=== PATIENT | male | born 1950 | race Caucasian/White ===

== ENCOUNTER 2018-01-01 11:35 | Emergency (ER) | payer OTHER ==
[2018-01-01 12:25] LABS: BASOPHILS 0.3 % (0-2); HEMATOCRIT 38.3 % (42.0-54.0); HEMOGLOBIN 12.6 g/dL (13.5-17.5); LYMPHOCYTES 20.4 % (15-50); MCH 28.8 pg (26.0-34.0); MCHC 32.9 g/dL (31.0-37.0); MCV 87.4 fL (80.0-100.0); MEAN PLATELET VOLUME 9.7 fL (7.4-10.4); MONOCYTES 11.6 % (2-11); NEUTROPHILS 65.7 % (40-80); PLATELET COUNT 88 10x3/uL (130-400); RBC 4.38 10x6/uL (4.20-6.10); RDW 14.2 % (11.5-14.5); WBC 3.5 10x3/uL (4.8-10.8)
[2018-01-01 12:33] LABS: UDS - AMPHET POSITIVE QUAL (NEGATIVE); UDS - BARB NEGATIVE QUAL (NEGATIVE); UDS - BENZO NEGATIVE QUAL (NEGATIVE); UDS - COCAINE POSITIVE QUAL (NEGATIVE); UDS - OPIATE NEGATIVE QUAL (NEGATIVE); UDS - PCP NEGATIVE QUAL (NEGATIVE); UDS - THC NEGATIVE QUAL (NEGATIVE)
[2018-01-01 12:34] LABS: APPEARANCE CLEAR (CLEAR); BILIRUBIN NEGATIVE (NEGATIVE); COLOR YELLOW (YELLOW); GLUCOSE NEGATIVE (NEGATIVE); KETONE SMALL mg/dL (NEGATIVE); NITRITE NEGATIVE (NEGATIVE); PROTEIN NEGATIVE (NEGATIVE); SPECIFIC GRAVITY 1.015 (1.005-1.020)
[2018-01-01 12:36] LABS: ALBUMIN 3.8 g/dL (3.4-5.0); ALKALINE PHOSPHATASE 113 U/L (46-116); ALT (SGPT) 81 U/L (10-68); BILIRUBIN - TOTAL 0.69 mg/dL (0.2-1.3); CALC OSMOLALITY 281 mosm/kg (275-300); CALCIUM 9.4 mg/dL (8.5-10.1); CARBON DIOXIDE 27.6 mmol/L (21.0-32.0); CHLORIDE - SERUM 104 mmol/L (98-107); CREATININE - SERUM 0.9 mg/dL (0.6-1.3); GLUCOSE 99 mg/dL (74-106); POTASSIUM - SERUM 4.5 mmol/L (3.5-5.1); SODIUM 142 mmol/L (136-145); UREA NITROGEN 10 mg/dL (7-18); eGFR NON AFRICAN AMERICAN 90 mL/min (90-120)
== END 2018-01-01 16:45 | disposition home or self-care (01) ==
LOC: D.ER 11:35
PROVIDERS: Emergency Medicine
DX: R45.851 Suicidal ideations (principal); F15.10 Other stimulant abuse, uncomplicated; F14.10 Cocaine abuse, uncomplicated; I10 Essential (primary) hypertension; K21.9 Gastro-esophageal reflux disease without esophagitis

== ENCOUNTER 2018-06-03 14:17 | Inpatient (IN) | payer MEDICARE ==
[~2018-06-03] VITALS: Ht 180.3 cm; Wt 127.0 kg
[2018-06-03 19:37] LABS: HEMATOCRIT 38.4 % (42.0-54.0); HEMOGLOBIN 13.3 g/dL (13.5-17.5); MCH 28.4 pg (26.0-34.0); MCHC 34.6 g/dL (31.0-37.0); MCV 81.9 fL (80.0-100.0); MEAN PLATELET VOLUME 9.4 fL (7.4-10.4); RBC 4.69 10x6/uL (4.20-6.10); RDW 14.1 % (11.5-14.5)
[2018-06-03 19:52] LABS: PLATELET COUNT 66 10x3/uL (130-400)
[2018-06-03 19:54] LABS: ALBUMIN 2.9 g/dL (3.4-5.0); ANION GAP 12.7 mmol/L (8-16); BILIRUBIN - TOTAL 1.02 mg/dL (0.2-1.3); CALCIUM 9.3 mg/dL (8.5-10.1); CARBON DIOXIDE 28.8 mmol/L (21.0-32.0); CREATININE - SERUM 1.3 mg/dL (0.6-1.3); POTASSIUM - SERUM 3.5 mmol/L (3.5-5.1); PROTEIN - SERUM 7.3 g/dL (6.4-8.2)
[2018-06-03 20:21] LABS: LYMPHOCYTES 66 % (15-50); MONOCYTES 20 % (2-11); PLATELET MORPHOLOGY GIANT PLTS PRESENT
[2018-06-03 20:25] LABS: PLATELET ESTIMATE DECREASED
[2018-06-03 21:09] VITALS: BP 147/89
[2018-06-03 23:47] VITALS: BP 139/83
[2018-06-04] VITALS (10 sets, daily range): BP systolic 107–136; BP diastolic 65–82; BMI 39.1
[2018-06-04 00:16] LABS: AMORPHOUS SEDIMENT <1+ /lpf (NONE SEEN); APPEARANCE CLEAR (CLEAR); BACTERIA NONE SEEN /hpf (NONE SEEN); BILIRUBIN 1+ (NEGATIVE); COLOR DK YELLOW (YELLOW); EPITHELIAL CELLS NSEEN /hpf (0-5); GLUCOSE NEGATIVE (NEGATIVE); GRANULAR CAST RARE /lpf (NONE SEEN); KETONE NEGATIVE (NEGATIVE); NITRITE NEGATIVE (NEGATIVE); PROTEIN 1+ mg/dL (NEGATIVE); WHITE CELLS - URINE 0-5 /hpf (0-5)
[2018-06-04 11:12] LABS: MONO NEGATIVE (NEGATIVE)
[2018-06-04] MEDS ORDERED: LYRICA150 MG PO (13:37)
[2018-06-04] MEDS ORDERED: ZANTAC150 MG PO (13:38)
[2018-06-04] MEDS ORDERED: MOBIC7.5 MG PO (13:39)
[2018-06-04] MEDS ORDERED: CYMBALTA60 MG PO (13:39)
[2018-06-05 06:59] VITALS: BP 124/70
[2018-06-05 07:15] LABS: BASOPHILS 0.6 % (0-2); EOSINOPHILS 3.6 % (0-7); HEMATOCRIT 34.4 % (42.0-54.0); HEMOGLOBIN 11.5 g/dL (13.5-17.5); IMMATURE GRANULOCYTES 0.6 % (0-5); LYMPHOCYTES 34.9 % (15-50); MCH 27.6 pg (26.0-34.0); MCHC 33.4 g/dL (31.0-37.0); MCV 82.7 fL (80.0-100.0); MEAN PLATELET VOLUME 9.6 fL (7.4-10.4); MONOCYTES 33.1 % (2-11); NEUTROPHILS 27.2 % (40-80); RBC 4.16 10x6/uL (4.20-6.10); RDW 14.1 % (11.5-14.5)
[2018-06-05 07:29] LABS: CALC OSMOLALITY 278 mosm/kg (275-300); CALCIUM 8.6 mg/dL (8.5-10.1); CARBON DIOXIDE 27.9 mmol/L (21.0-32.0); CHLORIDE - SERUM 105 mmol/L (98-107); GLUCOSE 104 mg/dL (74-106); POTASSIUM - SERUM 3.4 mmol/L (3.5-5.1); SODIUM 140 mmol/L (136-145); UREA NITROGEN 13 mg/dL (7-18); eGFR NON AFRICAN AMERICAN 79 mL/min (90-120)
[2018-06-05 07:42] LABS: PLATELET COUNT 82 10x3/uL (130-400)
[2018-06-05 07:44] LABS: WBC 1.7 10x3/uL (4.8-10.8)
[2018-06-05 09:24] VITALS: BP 120/71
[2018-06-05 12:21] LABS: EBV - EARLY ANTIGEN AB IGG 61.3 U/mL (0.0-8.9); EBV VIRAL CAPSID AB IGM <36.0 U/mL (0.0-35.9)
[2018-06-05 12:27] VITALS: BP 115/58
[2018-06-05 14:00] VITALS: Ht 180.3 cm; Wt 127.0 kg
[2018-06-05 16:58] VITALS: BP 135/80
[2018-06-05 21:36] VITALS: BP 111/65
[2018-06-06 04:17] VITALS: BP 135/70
[2018-06-06 06:10] LABS: BASOPHILS 0 % (0-2); HEMATOCRIT 33.8 % (42.0-54.0); HEMOGLOBIN 11.2 g/dL (13.5-17.5); IMMATURE GRANULOCYTES 0.8 % (0-5); LYMPHOCYTES 45.9 % (15-50); MCH 27.6 pg (26.0-34.0); MCHC 33.1 g/dL (31.0-37.0); MCV 83.3 fL (80.0-100.0); MEAN PLATELET VOLUME 10.4 fL (7.4-10.4); MONOCYTES 21.1 % (2-11); NEUTROPHILS 29.2 % (40-80); PLATELET COUNT 88 10x3/uL (130-400); RBC 4.06 10x6/uL (4.20-6.10); RDW 13.9 % (11.5-14.5)
[2018-06-06 06:36] LABS: CALC OSMOLALITY 283 mosm/kg (275-300); CALCIUM 8.7 mg/dL (8.5-10.1); CARBON DIOXIDE 30.4 mmol/L (21.0-32.0); CHLORIDE - SERUM 105 mmol/L (98-107); CREATININE - SERUM 0.9 mg/dL (0.6-1.3); GLUCOSE 130 mg/dL (74-106); POTASSIUM - SERUM 3.5 mmol/L (3.5-5.1); SODIUM 141 mmol/L (136-145); UREA NITROGEN 14 mg/dL (7-18); WBC 1.3 10x3/uL (4.8-10.8); eGFR NON AFRICAN AMERICAN 90 mL/min (90-120)
[2018-06-06 07:35] LABS: APTT 41.7 SECONDS (22.8-39.4); INR 0.96 (0.85-1.17); PROTIME 12.4 SECONDS (11.6-15.0)
[2018-06-06 08:40] VITALS: BP 141/82
[2018-06-06 09:23] LABS: % SATURATION 30 % (15-55); IRON 48 ug/dl (35-150); TOTAL IRON BIND CAPACITY 155 ug/dl (260-445); UNSAT IRON BIND CAPACITY 107 ug/dl (150-375)
[2018-06-06 13:20] LABS: ANA REFLEX - ANTICHROMATIN ABS <0.2 AI (0.0-0.9); ANA REFLEX - CENTROMERE B ABS <0.2 AI (0.0-0.9); ANA REFLEX - DBL STRANDED DNA <1 IU/mL (0-9); ANA REFLEX - DIRECT Positive (Negative); ANA REFLEX - JO-1 AB <0.2 AI (0.0-0.9); ANA REFLEX - RNP ANTIBODIES 2.9 AI (0.0-0.9); ANA REFLEX - SCL-70 <0.2 AI (0.0-0.9); ANA REFLEX - SJOGRENS AB SSA <0.2 AI (0.0-0.9); ANA REFLEX - SJOGRENS AB SSB <0.2 AI (0.0-0.9); ANA REFLEX - SMITH AB <0.2 AI (0.0-0.9)
[2018-06-06 14:30] LABS: HEPATITIS C ANTIBODY 3.9 (0.0-0.9)
[2018-06-06 15:30] LABS: FIBRIN SPLIT PRODUCTS <5 ug/mL (<5)
[2018-06-06 16:37] VITALS: BP 126/65
[2018-06-06 19:40] VITALS: BP 128/67
[2018-06-07 00:15] VITALS: BP 128/62
[2018-06-07 05:32] LABS: BASOPHILS 0.3 % (0-2); EOSINOPHILS 1.9 % (0-7); HEMATOCRIT 33.6 % (42.0-54.0); HEMOGLOBIN 11.2 g/dL (13.5-17.5); IMMATURE GRANULOCYTES 0.6 % (0-5); LYMPHOCYTES 19.9 % (15-50); MCH 27.7 pg (26.0-34.0); MCHC 33.3 g/dL (31.0-37.0); MEAN PLATELET VOLUME 9.6 fL (7.4-10.4); NEUTROPHILS 68.3 % (40-80); PLATELET COUNT 83 10x3/uL (130-400); RBC 4.05 10x6/uL (4.20-6.10); RDW 13.7 % (11.5-14.5); WBC 3.1 10x3/uL (4.8-10.8)
[2018-06-07 05:54] VITALS: BP 111/65
[2018-06-07 06:07] LABS: ANION GAP 7.5 mmol/L (8-16); CALCIUM 8.8 mg/dL (8.5-10.1); CARBON DIOXIDE 32.5 mmol/L (21.0-32.0); CREATININE - SERUM 1.1 mg/dL (0.6-1.3)
[2018-06-07 08:42] VITALS: BP 137/73
[2018-06-07 12:43] VITALS: BP 123/75
[2018-06-07 13:21] LABS: EBV DNA QUANT PCR Negative (Negative)
[2018-06-07 20:00] VITALS: BP 148/79
[2018-06-08] VITALS: BP 105/54
[2018-06-08 04:00] VITALS: BP 146/79
[2018-06-08 05:52] LABS: CALC OSMOLALITY 280 mosm/kg (275-300); CALCIUM 8.9 mg/dL (8.5-10.1); CARBON DIOXIDE 35.7 mmol/L (21.0-32.0); CHLORIDE - SERUM 104 mmol/L (98-107); GLUCOSE 114 mg/dL (74-106); POTASSIUM - SERUM 4.1 mmol/L (3.5-5.1); SODIUM 140 mmol/L (136-145); UREA NITROGEN 15 mg/dL (7-18); eGFR NON AFRICAN AMERICAN 79 mL/min (90-120)
[2018-06-08 06:11] LABS: BASOPHILS 0.7 % (0-2); EOSINOPHILS 2.5 % (0-7); HEMATOCRIT 33.6 % (42.0-54.0); HEMOGLOBIN 11.1 g/dL (13.5-17.5); IMMATURE GRANULOCYTES 1.4 % (0-5); LYMPHOCYTES 27.6 % (15-50); MCH 27.7 pg (26.0-34.0); MCV 83.8 fL (80.0-100.0); MEAN PLATELET VOLUME 9.6 fL (7.4-10.4); MONOCYTES 9.5 % (2-11); NEUTROPHILS 58.3 % (40-80); RBC 4.01 10x6/uL (4.20-6.10); RDW 13.7 % (11.5-14.5); WBC 2.8 10x3/uL (4.8-10.8)
[2018-06-08 06:15] LABS: PLATELET COUNT 101 10x3/uL (130-400)
[2018-06-08 08:30] VITALS: BP 145/86
[2018-06-08 12:57] VITALS: BP 138/76
[2018-06-08 16:32] VITALS: BP 138/77
[2018-06-08 20:00] VITALS: BP 129/71
[2018-06-09] VITALS: BP 111/60
[2018-06-09 04:00] VITALS: BP 104/65
[2018-06-09 05:59] LABS: BASOPHILS 0.8 % (0-2); EOSINOPHILS 2.4 % (0-7); HEMATOCRIT 34.4 % (42.0-54.0); HEMOGLOBIN 11.3 g/dL (13.5-17.5); LYMPHOCYTES 33.5 % (15-50); MCH 27.6 pg (26.0-34.0); MCHC 32.8 g/dL (31.0-37.0); MCV 83.9 fL (80.0-100.0); MEAN PLATELET VOLUME 9.8 fL (7.4-10.4); MONOCYTES 8.2 % (2-11); NEUTROPHILS 53.1 % (40-80); PLATELET COUNT 106 10x3/uL (130-400); RDW 13.8 % (11.5-14.5); WBC 2.5 10x3/uL (4.8-10.8)
[2018-06-09 06:18] LABS: CALC OSMOLALITY 279 mosm/kg (275-300); CALCIUM 8.7 mg/dL (8.5-10.1); CARBON DIOXIDE 33.2 mmol/L (21.0-32.0); CHLORIDE - SERUM 103 mmol/L (98-107); CREATININE - SERUM 0.9 mg/dL (0.6-1.3); GLUCOSE 105 mg/dL (74-106); POTASSIUM - SERUM 3.9 mmol/L (3.5-5.1); SODIUM 140 mmol/L (136-145); UREA NITROGEN 16 mg/dL (7-18); eGFR NON AFRICAN AMERICAN 90 mL/min (90-120)
[2018-06-09 09:24] VITALS: BP 124/66
[2018-06-09 18:12] VITALS: BP 140/77
[2018-06-09 20:20] VITALS: BP 132/76
[2018-06-10 00:15] VITALS: BP 131/83
[2018-06-10 04:14] VITALS: BP 124/76
[2018-06-10 08:41] VITALS: BP 114/63
[2018-06-10 09:38] LABS: BASOPHILS 0.4 % (0-2); HEMATOCRIT 36.3 % (42.0-54.0); HEMOGLOBIN 11.9 g/dL (13.5-17.5); IMMATURE GRANULOCYTES 1.8 % (0-5); LYMPHOCYTES 41.3 % (15-50); MCH 27.8 pg (26.0-34.0); MCHC 32.8 g/dL (31.0-37.0); MCV 84.8 fL (80.0-100.0); MEAN PLATELET VOLUME 9.2 fL (7.4-10.4); NEUTROPHILS 46.5 % (40-80); PLATELET COUNT 110 10x3/uL (130-400); RBC 4.28 10x6/uL (4.20-6.10); RDW 14.1 % (11.5-14.5); WBC 2.7 10x3/uL (4.8-10.8)
[2018-06-10 09:46] LABS: CALC OSMOLALITY 280 mosm/kg (275-300); CALCIUM 8.9 mg/dL (8.5-10.1); CARBON DIOXIDE 33.1 mmol/L (21.0-32.0); CHLORIDE - SERUM 102 mmol/L (98-107); CREATININE - SERUM 0.9 mg/dL (0.6-1.3); GLUCOSE 109 mg/dL (74-106); POTASSIUM - SERUM 4.2 mmol/L (3.5-5.1); SODIUM 139 mmol/L (136-145); UREA NITROGEN 18 mg/dL (7-18); eGFR NON AFRICAN AMERICAN 90 mL/min (90-120)
[2018-06-10 11:58] VITALS: BP 144/74
[2018-06-10 14:57] VITALS: BP 116/64
[2018-06-10 20:32] VITALS: BP 117/73
[2018-06-11 00:44] VITALS: BP 117/66
[2018-06-11 04:26] VITALS: BP 117/69
[2018-06-11 08:10] VITALS: BP 111/61
[2018-06-11 09:27] LABS: BASOPHILS 0.4 % (0-2); EOSINOPHILS 2.3 % (0-7); HEMATOCRIT 34.4 % (42.0-54.0); HEMOGLOBIN 11.1 g/dL (13.5-17.5); IMMATURE GRANULOCYTES 1.6 % (0-5); LYMPHOCYTES 31.3 % (15-50); MCH 27.8 pg (26.0-34.0); MCHC 32.3 g/dL (31.0-37.0); MEAN PLATELET VOLUME 8.8 fL (7.4-10.4); MONOCYTES 5.5 % (2-11); NEUTROPHILS 58.9 % (40-80); PLATELET COUNT 89 10x3/uL (130-400); RDW 14.5 % (11.5-14.5); WBC 2.6 10x3/uL (4.8-10.8)
[2018-06-11 09:45] LABS: ALBUMIN 2.4 g/dL (3.4-5.0); ALKALINE PHOSPHATASE 70 U/L (46-116); ALT (SGPT) 46 U/L (10-68); BILIRUBIN - TOTAL 0.23 mg/dL (0.2-1.3); CALC OSMOLALITY 286 mosm/kg (275-300); CALCIUM 8.7 mg/dL (8.5-10.1); CHLORIDE - SERUM 104 mmol/L (98-107); GLUCOSE 132 mg/dL (74-106); POTASSIUM - SERUM 4.6 mmol/L (3.5-5.1); PROTEIN - SERUM 5.9 g/dL (6.4-8.2); SODIUM 142 mmol/L (136-145); UREA NITROGEN 18 mg/dL (7-18); eGFR NON AFRICAN AMERICAN 79 mL/min (90-120)
[2018-06-11] MEDS ORDERED: NYSTATIN ORAL SU5 ML PO (11:02)
[2018-06-11] MEDS ORDERED: NICODERM C1 PATCH .1 TRANSDERM (11:02)
[2018-06-11] MEDS ORDERED: FLOMAX0.4 MG PO (11:03)
[2018-06-11] MEDS ORDERED: COLACE100 MG PO (11:03)
[2018-06-11] MEDS ORDERED: HYDROCODONE-APA1 TAB PO (11:48)
== END 2018-06-11 13:44 | disposition home or self-care (01) | DRG 802 ==
LOC: D.ER 14:17 → D.EDHOLD 22:17 → D.MS 22:17
PROVIDERS: Family Medicine; Internal Medicine Hematology & Oncology; Internal Medicine Nephrology; Radiology Vascular & Interventional Radiology; Student in an Organized Health Care Education/Training Program
PROC: 0QB23ZX Excision of Right Pelvic Bone, Percutaneous Approach, Diagnostic (ICD-10-PCS; 2018-06-06)
PROC: 07DR3ZX Extraction of Iliac Bone Marrow, Percutaneous Approach, Diagnostic (ICD-10-PCS; principal; 2018-06-06 08:43)
DX: D61.818 Other pancytopenia (principal); J18.9 Pneumonia, unspecified organism; E87.1 Hypo-osmolality and hyponatremia; N17.9 Acute kidney failure, unspecified; F17.203 Nicotine dependence unspecified, with withdrawal; K12.30 Oral mucositis (ulcerative), unspecified; R50.9 Fever, unspecified; R13.10 Dysphagia, unspecified; Z72.89 Other problems related to lifestyle; R16.1 Splenomegaly, not elsewhere classified; R19.7 Diarrhea, unspecified

== ENCOUNTER 2018-10-02 11:57 | Emergency (ER) | payer MEDICARE, OTHER ==
[~2018-10-02] VITALS: Ht 180.3 cm; Wt 94.4 kg
[~2018-10-02 11:57] MED LIST: COLACE100 MG PO; CYMBALTA60 MG PO; FLOMAX0.4 MG PO; HYDROCODONE-APA1 TAB PO; LYRICA150 MG PO; MOBIC7.5 MG PO; NICODERM C1 PATCH .1 TRANSDERM; NYSTATIN ORAL SU5 ML PO; ZANTAC150 MG PO
[2018-10-02 12:02] VITALS: Ht 180.3 cm; Wt 94.4 kg
[2018-10-02 14:28] LABS: BASOPHILS 0.7 % (0-2); EOSINOPHILS 6.7 % (0-7); HEMATOCRIT 35.3 % (42.0-54.0); HEMOGLOBIN 11.6 g/dL (13.5-17.5); LYMPHOCYTES 54.5 % (15-50); MCH 27.2 pg (26.0-34.0); MCHC 32.9 g/dL (31.0-37.0); MCV 82.9 fL (80.0-100.0); MEAN PLATELET VOLUME 9.1 fL (7.4-10.4); MONOCYTES 32.1 % (2-11); RBC 4.26 10x6/uL (4.20-6.10); RDW 15.3 % (11.5-14.5)
[2018-10-02 14:33] LABS: ALKALINE PHOSPHATASE 85 U/L (46-116); ALT (SGPT) 19 U/L (10-68); BILIRUBIN - TOTAL 0.34 mg/dL (0.2-1.3); CALC OSMOLALITY 282 mosm/kg (275-300); CALCIUM 8.7 mg/dL (8.5-10.1); CARBON DIOXIDE 28.3 mmol/L (21.0-32.0); CHLORIDE - SERUM 105 mmol/L (98-107); GLUCOSE 116 mg/dL (74-106); POTASSIUM - SERUM 4.1 mmol/L (3.5-5.1); PROTEIN - SERUM 7.4 g/dL (6.4-8.2); SODIUM 141 mmol/L (136-145); UREA NITROGEN 14 mg/dL (7-18); eGFR NON AFRICAN AMERICAN 79 mL/min (90-120)
[2018-10-02 14:36] LABS: PLATELET COUNT 63 10x3/uL (130-400); WBC 1.3 10x3/uL (4.8-10.8)
[2018-10-02 21:24] VITALS: BP 139/73
== END 2018-10-02 21:25 | disposition other institution (70) ==
LOC: D.ER 11:57
PROVIDERS: Family Medicine
DX: D72.819 Decreased white blood cell count, unspecified (principal); L03.011 Cellulitis of right finger; I96 Gangrene, not elsewhere classified; D69.6 Thrombocytopenia, unspecified; F17.200 Nicotine dependence, unspecified, uncomplicated